=== PATIENT | male | born 1960 | race Caucasian/White ===

== ENCOUNTER 2018-06-29 07:06 | Emergency (ER) | payer BC ==
--- OUTSIDE RECORDS SUMMARY | 2018-06-29 07:39 | XMS REPORT | Continuity of Care Document ---
:1960 External Reference #:[id number] Author Name Lori Sparks O.D. Address [address] [place] [address] Care Team Providers Name Role Phone Marcell Chavarria M.D. Primary Care Physician Unavailable Payers Date Identification Numbers Payment Provider Subscriber Policy Number: [id number] [facility] Mila Ahn PayID: [id number] [id number] [place] [id number] Advance Directives Description No Information Available Problems Date Description Provider Status Onset: 05/14/2015 Nuclear senile cataract Lori Sparks O.D. Active Onset: 05/14/2015 Retinal drusen Lroi Sparks O.D. Active Onset: 05/14/2015 Chronic allergic conjunctivitis Lori Sparks O.D. 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 Family History Date Family Member(s) Observation Comments Father Macular Degeneration dry Mother Macular Degeneration wet Mother Cataract Social History Type Date Description Comments Sex Unknown Marital Status Has been 1 time Occupation [employer] Work Status Full-Time Employment ETOH Use Occasionally consumes alcohol Tobacco Use Start: Unknown End: Patient is a former smoker Unknown Recreational Drug Use Denies Drug Use Smoking Status Reviewed: 06/22/18 Patient is a former smoker Allergies, Adverse Reactions, Alerts Date Description Reaction Status Severity Comments 05/14/2015 NKDA Active 06/06/2016 Dust Active 06/06/2016 Grass Active 06/06/2016 Cats Active 06/06/2016 Dogs Active 06/06/2016 Pollen Active 06/06/2016 Seasonal Active Medications Medication Date Status Form Strength Qnty SIG Indications Ordering Provider Epinastine HCL Active Solution 0.05% 15units Instill 1 H10.45 Lori Ortiz Drop Two [place], Times A O.D. Day In Each Eye as Needed Amlodipine Active Tablets 2.5mg Take One Unknown Besylate 000 Tablet By Mouth Every Day Zyrtec Allergy Active Capsules 10mg Unknown 000 Multivitamin Active Tablets 1 tab po Unknown Adult 000 daily Icaps Areds 2 Active Capsules 2 1 tab po Unknown 000 daily No Active Hx Unknown Medications 015 - 015 Fish Oil Extra Hx Capsules 1 tab po Unknown Strength 000 - daily 018 Vitamin C Hx Tablets 1 tab po Unknown 000 - daily 018 Immunizations Description No Information Available Vital Signs Description No Information Available Results Description No Information Available Procedures Date Code Description Status 06/07/2017 68883 Scanning Computerized Opthalmic Diagnostic Posterior Seg Completed Retina 06/07/2017 19080 Est Patient Comprehensive Exam Completed 06/06/2016 47782 Scanning Computerized Opthalmic Diagnostic Posterior Seg Completed Retina 06/06/2016 20925 Determination Of Refractive State Completed 06/06/2016 19346 Est Patient Comprehensive Exam Completed 05/14/2015 84865 Scanning Computerized Opthalmic Diagnostic Posterior Seg Completed Retina 05/14/2015 76630 Determination Of Refractive State Completed 05/14/2015 16612 New Patient Comprehensive Exam Completed Encounters Description No Information Available Plan of Treatment 06/22/2018 - Lori Spraks O.D.H35.3131 Nonexudative age-related macular degeneration, bilateral, early dry stageComments:continue taking the Icaps Areds 2 vitamins check your amsler grid 1-2 x weekly each eye separatelyFollow up:1 Year Follow Up OCT MAC You can expect to have your eyes dilated at your next visit. If Dr. Sparks orders any additional testing, it may require extra time. We recommend that you bring sunglasses, as dilation drops often make you light sensitive until they wear off. We always recommend you bring someone to drive you home if you are uncomfortable driving with your eyes dilated. If you have any questions before your next visit, feel free to call our office at .K85.25 Age-related nuclear cataract, bilateralComments:You have been diagnosed with cataracts. If you are happy with your vision as it is now, then we willsee you at your next scheduled appointment. If you feel like your vision is getting worse before your scheduled appointment, please call Meagan Farah at [phone].
[2018-06-29 07:49] VITALS: BP 136/88
--- NOTE | 2018-06-29 08:10 | UC ---
Skin Complaint HPI - HPI Summary HPI Summary: hives all over x 3 days very itchy espitia, no lifestyle changes, no new soap , shampoo, detergent, no new food or drinks no fever, no chills, so sore throat, no cough - History of Current Complaint Chief Complaint: UCSkin Time Seen by Provider: 06/29/18 08:02 Stated Complaint: SKIN COMPLAINT Hx Obtained From: Patient Onset/Duration: Gradual Onset, Lasting Days - 3, Still Present Timing: Constant Onset Severity: Moderate Current Severity: Moderate Pain Intensity: 0 Location: Diffuse Character: Pruritus, Hives, Redness Aggravating Factor(s): Nothing Alleviating Factor(s): Nothing Associated Signs & Symptoms: Positive: Rash. Negative: Nausea, Vomiting, Numbness, Thirst, Diaphoresis, Weakness, Pallor, Shivering, Difficulty Breathing , Fever, Chills, Cough, Wheezing, Chest Pain, Hoarseness, Throat Tightening, Abdominal Pain, Lightheadedness - Allergy/Home Medications Allergies/Adverse Reactions: Allergies Allergy/AdvReac Type Severity Reaction Status Date / Time No Known Allergies Allergy Verified 06/08/15 10:26 Home Medications: Home Medications Areds 2 1 dose PO DAILY 06/29/18 [History Confirmed 06/29/18] Boswellia Aurelia Extract 1 dose PO DAILY 06/29/18 [History Confirmed 06/29/18] Multivitamins/Minerals TAB* [Theragran/minerals TAB*] 1 tab PO DAILY 06/29/18 [ History Confirmed 06/29/18] Triamcinolone 0.1% CREAM(NF) [Kenalog 0.1% Cream (NF)] 1 applic TOPICAL ONCE [History Confirmed 06/29/18] amLODIPine TAB* [Norvasc 5 mg TAB*] 2.5 mg PO DAILY 06/29/18 [History Confirmed 06/29/18] diPHENhydraMINE PO* [Benadryl PO 25 MG TAB*] 25 mg PO Q6H PRN 06/29/18 [History Confirmed 06/29/18] PMH/Surg Hx/FS Hx/Imm Hx Cardiovascular History: Hypertension - Surgical History Surgical History: Yes Surgery Procedure, Year, and Place: TONSILLECTOMY, TARSAL TUNNEL RELEASE OF FOOT , cyst removed from neck and left ring finger - Family History Known Family History: Positive: Hypertension - Social History Alcohol Use: Occasionally Substance Use Type: None Smoking Status (MU): Former Smoker When Did the Patient Quit Smoking/Using Tobacco: QUIT IN 1994 Review of Systems All Other Systems Reviewed And Are Negative: Yes Constitutional: Positive: Negative Skin: Positive: Rash Eyes: Positive: Negative ENT: Positive: Negative Respiratory: Positive: Negative Cardiovascular: Positive: Negative Genitourinary: Positive: Negative Is Patient Immunocompromised?: No Physical Exam Triage Information Reviewed: Yes Appearance: Well-Appearing, No Pain Distress, Well-Nourished Vital Signs: Initial Vital Signs Temp 97.9 F 06/29/18 07:41 Pulse 86 06/29/18 07:41 Resp 20 06/29/18 07:41 BP 136/88 06/29/18 07:41 Pulse Ox 100 06/29/18 07:41 Vital Signs Reviewed: Yes Eye Exam: Normal Eyes: Positive: Conjunctiva Clear ENT: Positive: Normal ENT inspection, Hearing grossly normal, Pharynx normal Neck: Positive: Supple, Nontender, No Lymphadenopathy Respiratory Exam: Normal Respiratory: Positive: Chest non-tender, Lungs clear, Normal breath sounds Cardiovascular: Positive: RRR, No Murmur, Pulses Normal Abdominal Exam: Normal Abdomen Description: Positive: Nontender, Soft Bowel Sounds: Positive: Present Skin: Positive: Rashes - generalized macular rash Course/Dx - Diagnoses Provider Diagnosis: Hives Discharge - Sign-Out/Discharge Documenting (check all that apply): Patient Departure All imaging exams completed and their final reports reviewed: No Studies - Discharge Plan Condition: Stable Disposition: HOME Prescriptions: predniSONE [Prednisone 20 MG TAB] 20 mg PO BID #10 tablet Patient Education Materials: Urticaria (ED) Referrals: Marcell Chavarria MD [Primary Care Provider] - If Needed - Billing Disposition and Condition Condition: STABLE Disposition: Home
== END 2018-06-29 08:13 | disposition home or self-care (01) ==
LOC: UCCORT 07:06
DX: L50.9 Urticaria, unspecified (principal); Z87.891 Personal history of nicotine dependence
CPT/HCPCS: 99212; G0463

== ENCOUNTER 2019-04-25 05:37 | Day surgery (SDC) | payer BC ==
[~2019-04-25 05:37] MED LIST: Buffered Lidocaine 1% SYRIN* 1 ML/SYRINGE INTRADERM ONE
[2019-04-25] MEDS ORDERED: Lactated Ringers 1000 ML Bag* 1,000 ML IV SCH (06:00)
[2019-04-25] MEDS ORDERED: ceFAZolin 2 GM in NS PREMIX(*) 2 GM/100 ML BAG IVPB ONE (06:05)
[2019-04-25] MEDS ORDERED: Buffered Lidocaine 1% SYRIN* 1 ML/SYRINGE INTRADERM ONE (06:05)
[2019-04-25] MEDS ORDERED: Methylene Blue 0.5 %* 50 MG/10 ML AMP IV ONE (07:16)
[2019-04-25] MEDS ORDERED: Lidocaine 1% w EPI 1:100,000* MDV 20 ML VIAL ONE (07:16)
[2019-04-25] MEDS ORDERED: Bupivacaine 0.25% SDV* 30 ML ONE (07:16)
[2019-04-25] MEDS ORDERED: Mineral Oil Sterile, TOPICAL* 25 ML BTL ONE (07:16)
[2019-04-25] MEDS ORDERED: fentaNYL* 50 MCG/ML 2 ML VIAL (100 MCG VIAL) ONE (07:21)
[2019-04-25] MEDS ORDERED: Midazolam* 1 MG/ML 5 ML VIAL (5 MG) ONE (07:22)
[2019-04-25] MEDS ORDERED: Propofol* 10 MG/ML 20 ML BTL ONE (07:23)
[2019-04-25] MEDS ORDERED: Lidocaine 2% PF * 5 ML VIAL ONE (07:23)
[2019-04-25] MEDS ORDERED: Naloxone* 0.4 MG/ML 1 ML VIAL IV PRN (07:28)
[2019-04-25] MEDS ORDERED: Midazolam* 1 MG/ML 2 ML VIAL (2 MG) ONE (07:52)
[2019-04-25 10:34] VITALS: BP 139/89
== END 2019-04-25 10:40 | disposition home or self-care (01) ==
LOC: OR 05:37
PROVIDERS: ATTEND Plastic Surgery
DX: D03.71 Melanoma in situ of right lower limb, including hip (principal); I10 Essential (primary) hypertension; Z87.891 Personal history of nicotine dependence
CPT/HCPCS: 88305; A9270-GY; J0690; J2250; J2704; J3010; J3490